=== PATIENT | female | born 1995 | race Caucasian/White ===

== ENCOUNTER 2023-04-12 20:21 | Emergency (ER) | payer BC ==
[2023-04-12] MEDS ORDERED: Bacitracin Oint 1 GM U/D Packet TOP ONE (21:21)
[2023-04-12] MEDS ORDERED: Lidocaine 1% 5 ML VIAL INJECT ONE (21:21)
== END 2023-04-12 22:12 | disposition home or self-care (01) ==
LOC: JP.ED 20:21
DX: S01.81XA Laceration without foreign body of other part of head, initial encounter (principal); S80.211A Abrasion, right knee, initial encounter; W21.07XA Struck by softball, initial encounter
CPT/HCPCS: 12013; 99283